=== PATIENT | female | born 1970 | race Asian ===

== ENCOUNTER 2021-12-28 22:39 | Emergency (ER) | payer MEDICAID ==
[~2021-12-28] VITALS: Ht 157.5 cm; Wt 52.2 kg
--- NOTE | 2021-12-28 22:51 | NUR ---
DR. CHAN AT BEDSIDE FOR SCREENING.
--- NOTE | 2021-12-28 23:29 | NUR ---
BLOOD COLLECTED AND SENT TO LAB
[2021-12-28 23:58] LABS: BASOPHILS % (AUTO) 0.5 % (0.0-2.0); HEMATOCRIT 37 % (33-45); HEMOGLOBIN 12.3 g/dL (11.5-14.8); LYMPHOCYTES % (AUTO) 18.1 % (20.0-44.0); MEAN CORPUSCULAR HGB CONC 34 g/dl (31.0-36.0); MEAN CORPUSCULAR VOLUME 95 fL (82-100); MONOCYTES # (AUTO) 0.3 K/uL (0.1-1.30); MONOCYTES % (AUTO) 6.2 % (2.0-12.0); NEUTROPHILS # (AUTO) 4.1 K/uL (1.8-8.9); NEUTROPHILS % (AUTO) 73.2 % (43.0-81.0); PLATELET COUNT (AUTO) 153 K/uL (150-450); RED BLOOD CELL COUNT(AUTO) 3.84 MIL/uL (4.0-5.2); WHITE BLOOD COUNT (AUTO) 5.5 K/uL (4.3-11.0)
--- NOTE | 2021-12-29 00:09 | NUR ---
EMT AT BEDSIDE FOR EKG.
--- NOTE | 2021-12-29 00:21 | NUR ---
PATIENT IN CT
[2021-12-29 00:25] LABS: CALCIUM, SERUM 8.8 mg/dL (8.5-10.1); CREATININE 0.6 mg/dL (0.6-1.3); POTASSIUM 3.1 mmol/L (3.5-5.1)
[2021-12-29 00:39] LABS: ALBUMIN 3.8 g/dL (3.4-5.0); BILIRUBIN,DIRECT 0.2 mg/dL (0.0-0.2); BILIRUBIN,TOTAL 0.5 mg/dL (0.2-1.0); TOTAL PROTEIN, SERUM 6.9 g/dL (6.4-8.2)
[2021-12-29] MEDS ORDERED: POTASSIUM CHLORIDE 20 MEQ TAB.PRT.SR PO ONE (01:30)
[2021-12-29 04:16] VITALS: BP 140/75
--- NOTE | 2021-12-29 04:43 | NUR ---
COVID SWAB DONE AND SENT TO LAB
[2021-12-29 04:49] LABS: BILIRUBIN,URINE NEGATIVE (NEGATIVE); COLOR,URINE YELLOW (YELLOW); LEUKOCYTE ESTERASE ,URINE NEGATIVE (NEGATIVE); NITRITE, URINE NEGATIVE (NEGATIVE); PH,URINE 7.5 (5.0-8.0); PROTEIN,URINE NEGATIVE (NEGATIVE); UGLUCOSE NEGATIVE (NEGATIVE); UROBILINOGEN,URINE 0.2 EU/dL (0.2)
--- NOTE | 2021-12-29 05:43 | NUR ---
OPTION 1 THEN OPTION 4 FOR DOCTOR AT [facility].
--- NOTE | 2021-12-29 07:45 | NUR ---
PT IN BED RESTING, AWAKE AND VERBALLY RESPONSIVE. [place]-SPEAKING BUT UNDERSTANDS SOME PASHT[place], ABLE TO MAKE NEEDS KNOWN. ABLE TO DRINK FLUIDS, NO NAUSEA/VOMITING. ASSISTED W/ ADL IN BED.
--- NOTE | 2021-12-29 08:44 | NUR ---
PER NASREEN BRAND ([phone]), PT IS GOING TO [facility]. NUMBER FOR REPORT IS [phone]. PLEASE WAIT ABOUT 10MINS FOR REPORT AND ARRANGE TRANSPORT FOR PT.
--- NOTE | 2021-12-29 09:26 | NUR ---
[facility] CALLED FOR TRANSPORT ETA 1000 PER KHOI.
--- NOTE | 2021-12-29 09:31 | NUR ---
PT REPORT GIVEN TO LUIS LEON AT [facility]
--- NOTE | 2021-12-29 09:53 | NUR ---
PICKED UP BY TRANSPORT IN STABLE CONDITION
== END 2021-12-29 10:20 | disposition short-term general hospital (02) ==
LOC: ER 22:41
DX: R55 Syncope and collapse (principal); R07.9 Chest pain, unspecified; Z85.3 Personal history of malignant neoplasm of breast; E87.6 Hypokalemia; R03.0 Elevated blood-pressure reading, without diagnosis of hypertension; Z20.822 Contact with and (suspected) exposure to COVID-19
CPT/HCPCS: 99285; 70450; 70486; 85025; 80048; 80076; 81003; 36415 ×2; 80307; 93005; 71045; 83735; 85378; 84484 ×2; 87426; 80320; C9803; G0480